=== PATIENT | female | born 1975 | race African-American/Black ===

== ENCOUNTER 2022-11-09 07:09 | Emergency (ER) | payer SELFPAY ==
[2022-11-09] MEDS ORDERED: MAG HYDROX/AL HYDROX/SIMETH 30 ML UNIT-DOSE CUP PO ONE (07:32)
[2022-11-09] MEDS ORDERED: FAMOTIDINE 10 MG TABLET PO ONE (07:32)
[2022-11-09] MEDS ORDERED: MAG HYDROX/AL HYDROX/SIMETH 30 ML UNIT-DOSE CUP ONE (07:43)
[2022-11-09] MEDS ORDERED: FAMOTIDINE 10 MG TABLET ONE (07:43)
[2022-11-09 07:47] VITALS: BP 110/72; PULSE 71; RESP 20; TEMP 97.8; BMI 40.1
== END 2022-11-09 10:18 | disposition home or self-care (01) ==
LOC: JER 07:09
DX: R42 Dizziness and giddiness (principal); F41.9 Anxiety disorder, unspecified; F12.90 Cannabis use, unspecified, uncomplicated
CPT/HCPCS: 93005; 93010; 99283-25